=== PATIENT | male | born 1945 | race Caucasian/White ===

== ENCOUNTER 2024-09-10 10:39 | Emergency (ER) | payer MEDICARE, OTHER, SELFPAY ==
--- NOTE | 2024-09-10 10:58 | CRLHL7_ITS ---
For Patients: As a result of the Century Cures Act, medical imaging exams and procedure reports are released immediately into your electronic medical record. You may view this report before your referring provider. If you have questions, please contact your health care provider. INDICATION: Fall, anticoagulated. TECHNIQUE: Noncontrast CT of the head with multiplanar reconstruction utilizing bone and soft tissue algorithms. COMPARISON: None available. FINDINGS: No acute intracranial hemorrhage. Focal hypoattenuation obscuring the dunbar-white matter interface in the left superior frontal gyrus (series 2, image 41). Mild diffuse parenchymal volume loss. The ventricles are proportional to the sulci. Intact calvarium and skull base. Bilateral pseudophakia. Partially imaged post inflammatory retention cyst in the left maxillary sinus. IMPRESSION: 1. No acute intracranial hemorrhage or mass effect. 2. 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 Please note that all CT scans at this facility use dose modulation, iterative reconstruction, and/or weight-based dosing when appropriate to reduce radiation dose to as low as reasonably achievable. Dictated by Umang Walton MD @ 09/10/2024 11:22:59 AM (Electronically Signed)
[2024-09-10 10:59] VITALS: BP 131/85; PULSE 68; RESP 18; TEMP 36.8; O2SAT 97; BMI 39.5
--- NOTE | 2024-09-10 11:00 | ED.GENADULT ---
HPI - General Adult General Date Seen: 09/10/24 Chief complaint: Fall/Minor Trauma Stated complaint: Fell, hit head--on eliquis Time Seen by Provider: 09/10/24 10:59 History of Present Illness HPI narrative: 79 yo M 0 who is on Eliquis (history of AFib) presenting to the ER today with his by private car for evaluation of injuries after a mechanical trip fall. He had his are traveling from [place] up to their cabin on [address] today. They stopped at a rest stop near [place]. He was walking and accidentally caught his toe on edge of the sidewalk and fell forward. He does have some baseline unsteady gait and some baseline neuropathy so normally walks with a cane. He was using his cane. He just fell forward. He hit his face against the sidewalk. He did scrape up the right lens of his classes and the rim of his glasses hit his right eye about but fortunately did not create a laceration. He had a little bit of bleeding from his nose and a small scrape on his right elbow. No loss of consciousness. He did have a mild headache and some mild dizziness after the fall. Knowing that he is at risk for bleeding because he is on Eliquis, his brought him right here to the hospital. [facility] was the closest hospital to them. Now that he is here he says he feels fine except for that he notes that when he got up to walk he felt a little bit unsteady. He is not having any chest pain. No palpitations. No trouble breathing. No fever. No abdominal pain. No back pain. No hip pain. No injury to his legs. Related Data Home Medications ?Medication ?Instructions ?Recorded ?Confirmed apixaban 2.5 mg tablet (Eliquis) 2.5 mg PO Q12H 09/10/24 09/10/24 bupropion HCl 100 mg tablet,12 hr 100 mg PO QHS 09/10/24 09/10/24 sustained-release (Wellbutrin SR) bupropion HCl 300 mg 24 hr tablet, 300 mg PO DAILY 09/10/24 09/10/24 extended release (Wellbutrin XL) furosemide 20 mg tablet (Lasix) 20 mg PO DAILY 09/10/24 09/10/24 losartan 25 mg tablet 25 mg PO BID 09/10/24 09/10/24 metoprolol tartrate 50 mg tablet 50 mg PO BID 09/10/24 09/10/24 (Lopressor) pantoprazole 40 mg tablet,delayed 40 mg PO DAILY 09/10/24 09/10/24 release (Protonix) Allergies Allergy/AdvReac Type Severity Reaction Status Date / Time Iodinated Contrast Media Allergy Intermediate Verified 09/10/24 10:52 ducosate Allergy Intermediate Abdominal Uncoded 09/10/24 10:52 Pain Exam Narrative: Exam Narrative: Constitutional: Appears well-developed and well-nourished. Alert. Conversant. Non toxic. HENT: Head: No depressed skull fracture, Raccoon Eyes, Woodruff's sign, or hemotympanum. Face normal. TMs normal. Nose: Superficial abrasion on bridge of nose without any suturable laceration. No foreign body. No active bleeding. No deformity. No signs of nasal fracture. No epistaxis. . Mouth/Throat: Oral mucosa is clear and moist. no trismus. Pharynx normal. Tonsils symmetric. No tonsillar enlargement, erythema, or exudate. Eyes: Conjunctivae normal. EOM normal. Pupils equal, round, and reactive to light. No scleral icterus. Neck: Normal range of motion. No posterior midline tenderness or step-off. No tenderness. Neck supple. No tracheal deviation present. Cardiovascular: Normal rate, regular rhythm. No gallop. No friction rub. No murmur heard. Symmetric radial artery pulses normal cap refill Pulmonary/Chest: Effort normal. No stridor. No respiratory distress. No wheezes. No rales. No rhonchi . No tenderness. Abdominal: Soft. No distension. Soft, nontender umbilical hernia. No tenderness. No rebound. No guarding. Musculoskeletal: RUE: Normal range of motion. No tenderness. No deformity. Superficial 2 x 3 cm abrasion on right posterolateral elbow without any bony tenderness. Normal range of motion. LUE: Normal range of motion. No tenderness. No deformity RLE: Normal range of motion. No edema. No tenderness. No deformity LLE: Normal range of motion. No edema. No tenderness. No deformity Neurological: Mental status normal. Attention normal. Alert and oriented x3. GCS 15. Memory normal. Speech fluent. Cognition normal. Cranial Nerves intact II-XII except I did not formally test gag or visual acuity. EOMI. Palate elevates symmetrically and tongue protrudes in the midline. Strength: 5/5 trapezius on the right and left 5/5 deltoid on the right and left 5/5 biceps on the right and left 5/5 triceps on the right and left 5/5 network relay tester on the right and left 5/5 thumb opposition on the right and left 5/5 finger abduction on the right and left 5/5 hip flexors (L3) on the right and left 5/5 quadriceps (L4) on the right and left 5/5 tibialis anterior on the right and left 5/5 EHL (L5) on the right and left 5/5 gastrocnemius (S1) on the right and left 5/5 hamstring on the right and left Sensation intact to light touch in both upper extremities (C4-T1) Sensation intact to light touch in Both lower extremities (L4-S1). Finger to nose and coordination normal. Gait assessed by nurses using the patient's cane[] Skin: Skin is warm and dry. No rash noted. No pallor. Normal capillary refill. Psychiatric: Normal mood. Normal affect. Const: Vital Signs, click to edit/add: Vital Signs - 24 hr 09/10/24 10:59 Temperature 98.2 F Pulse Rate [Pulse Oximeter] 68 Respiratory Rate 18 Blood Pressure [Ri ght Upper Arm] 131/85 Pulse Oximetry 97 Oxygen Delivery Me thod Room Air Course Vital Signs Vital signs: Initial Vital Signs Temperature 98.2 F 09/10/24 10:59 Temperature Source Temporal Artery Scan 09/10/24 10:59 Pulse Rate 68 09/10/24 10:59 Respiratory Rate 18 09/10/24 10:59 Blood Pressure 131/85 09/10/24 10:59 Blood Pressure Mean 100 09/10/24 10:59 Pulse Oximetry 97 09/10/24 10:59 Oxygen Delivery Method Room Air 09/10/24 10:59 Vital Signs Temperature 98.2 F 09/10/24 10:59 Pulse Rate 68 09/10/24 10:59 Respiratory Rate 18 09/10/24 10:59 Blood Pressure 131/85 09/10/24 10:59 Pulse Oximetry 97 09/10/24 10:59 Oxygen Delivery Method Room Air 09/10/24 10:59 Temperature 98.2 F 09/10/24 10:59 Pulse Rate 68 09/10/24 10:59 Respiratory Rate 18 09/10/24 10:59 Blood Pressure 131/85 09/10/24 10:59 Pulse Oximetry 97 09/10/24 10:59 Oxygen Delivery Method Room Air 09/10/24 10:59 Medical Decision Making MDM Narrative Medical decision making narrative: This patient presents with blunt head trauma after mechanical trip and fall. He is on Eliquis.. Differential includes intracranial injuries (e.g. skull fracture, epidural hematoma, subdural hematoma, intracerebral hemorrhage, and traumatic subarachnoid hemorrhage), verses concussion or other traumatic brain injury. CT imaging was obtained and fortunately was normal save for incidental finding of an apparently chronic stroke. He is not having any acute stroke symptoms that led to his fall today. Since he will on Eliquis we discussed the risk of delayed bleeding being roughly 1% or perhaps up to 2%. He is essentially asymptomatic except for slightly feeling dizzy. He is ambulating well here in the ER. At this time it appears that the patient's symptoms are due to a concussion. The patient/family understand that they must return if any red flags appear/develop in the coming hours/days, as this may represent an indication to perform a repeat CT scan or further evaluation. I have noted that red flags include: headaches that get worse, increased drowsiness, strange behavior, repetitive speech, seizures, repeated vomiting, growing confusion, increased irritability, slurred speech, weakness or numbness, and loss of responsiveness. This information will also be provided in writing at discharge. I have discussed the second impact syndrome, and the importance of not sustaining repeated concussion in the next 1-2 weeks. Post concussive syndrome is also discussed. The patient's questions have been answered. He will be with his . They are debating whether not they are going to go home to [place] today and convalesce at home or whether there continue to their trip up to the cabin where they are planning to meet their family. Incidentally he also has a small scrape on the right side of the bridge of his nose but no suturable laceration and no sign of an underlying nasal fracture. He also has a small linear abrasion on the right eyebrow which is probably caused by the rim of his glasses but thank Goodness is not a laceration. No sutures necessary there. At this point I would not think he needs maxillofacial CT. He is not having any associated neck pain to suggest risk for C-spine fracture. He has a superficial abrasion on his right elbow but no evidence for fracture there. No evidence for lower extremity fracture or hip fracture. No chest pain. Imaging Data CT scan - head: Attestation: I have reviewed the pertinent imaging results. Radiologist's impression: IMPRESSION: 1. No acute intracranial hemorrhage or mass effect. 2. 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 Discharge Plan Discharge Clinical Impression: Concussion Patient Disposition: Home, Self-Care Condition: Stable Instructions: Concussion (ED), Head Injury (ED) Additional Instructions: As we discussed, please return to the ER right away if you have any problems especially worsening dizziness, headache, confusion, vomiting, or if you have any other concerns. Fortunately, your CT scan today shows no sign of any bleeding or other injury to your brain. Prescriptions: No Action Eliquis 2.5 mg tablet 2.5 mg PO Q12H pantoprazole [Protonix] 40 mg tablet,delayed release (DR/EC) 40 mg PO DAILY metoprolol tartrate [Lopressor] 50 mg tablet 50 mg PO BID losartan 25 mg tablet 25 mg PO BID furosemide [Lasix] 20 mg tablet 20 mg PO DAILY bupropion HCl [Wellbutrin SR] 100 mg tablet sustained-release 12 hr 100 mg PO QHS bupropion HCl [Wellbutrin XL] 300 mg tablet extended release 24 hr 300 mg PO DAILY Follow Up/Referrals: Provider,Not a Local [Primary Care Provider, Family Practice] Stand Alone Forms: [employer] Info Instructions
[2024-09-10 11:40] VITALS: BP 123/80; PULSE 66; RESP 16; O2SAT 94
== END 2024-09-10 12:54 | disposition home or self-care (01) ==
PROVIDERS: Emergency Provider Emergency Medicine
DX: S06.0X0A Concussion without loss of consciousness, initial encounter (principal); W01.0XXA Fall on same level from slipping, tripping and stumbling without subsequent striking against object, initial encounter
CPT/HCPCS: 70450; 99282; 99283; 99284